=== PATIENT | male | born 1960 | race Two or more races ===

== ENCOUNTER 2025-04-04 16:14 | Inpatient (IN) | payer MEDICAID ==
[~2025-04-04] VITALS: Ht 154.9 cm; Wt 70.8 kg
[2025-04-04] MEDS: LEVETIRACETAM (500MG) 1,000 MG in IV NS 0.9% 90 ML IV SCH (17:19)
[2025-04-04 18:02] LABS: PLATELET COUNT (AUTO) 198 K/uL (150-450); RED BLOOD CELL COUNT(AUTO) 4.95 MIL/uL (4.5-6.0); RED CELL DISTRIBUTION WIDTH 13.3 % (11.5-15.0); WHITE BLOOD COUNT (AUTO) 7.2 K/uL (4.3-11.0)
[2025-04-04 18:04] LABS: CALCIUM, SERUM 9.2 mg/dL (8.5-10.1); CREATININE 0.7 mg/dL (0.6-1.3); SODIUM SERUM 140.0 mmol/L (136-145); UREA NITROGEN, BLOOD 17.0 mg/dL (7-18)
[2025-04-04 18:11] LABS: ASPARTATE AMINOTRANSFERASE 18.0 U/L (15-37); TOTAL PROTEIN, SERUM 7.0 g/dL (6.4-8.2)
[2025-04-04 18:16] LABS: LACTIC ACID 1.8 mmol/L (0.4-2.0)
[2025-04-04 18:18] LABS: INR 0.99 (0.91-1.10)
[2025-04-04] MEDS: IV NS 0.9% 1,000 ML BAG IV ONE (20:02)
[2025-04-04] MEDS ORDERED: DEXTROSE 50%-WATER 50 ML DISP.SYRIN IV PRN (22:00)
[2025-04-04] MEDS ORDERED: MAG HYDROX/AL HYDROX/SIMETH 30 ML UDC PO PRN (22:00)
[2025-04-04] MEDS ORDERED: LORAZEPAM INJ 2 MG/ML VIAL IV PRN (22:00)
[2025-04-04] MEDS ORDERED: MAGNESIUM HYDROXIDE 30 ML UDC PO PRN (22:00)
[2025-04-04] MEDS ORDERED: ONDANSETRON HCL/PF 4 MG/2 ML VIAL IVP PRN (22:00)
[2025-04-04] MEDS ORDERED: ACETAMINOPHEN 325 MG TABLET PO PRN (22:00)
[2025-04-04] MEDS: BLOOD SUGAR DIAGNOSTIC 1 EACH STRIP IN SCH (22:09)
[2025-04-04] MEDS ORDERED: INSULIN REGULAR, HUMAN 100 UNIT/ML 10 ML VIAL ONE (22:12)
[2025-04-04] MEDS: INSULIN REGULAR, HUMAN 100 UNIT/ML 3 ML VIAL SQ PRN (22:14)
[2025-04-04] MEDS: IV NS 0.9% 1,000 ML IV PRN (22:22)
[2025-04-04 22:55] VITALS: BP 118/74; TEMP 97.7; O2SAT 98
[2025-04-04] MEDS ORDERED: ACET325T53 PO (23:05)
[2025-04-04] MEDS ORDERED: HYDR-4076 PO (23:17)
[2025-04-04] MEDS ORDERED: LOSA50TA39 PO (23:17)
[2025-04-04] MEDS ORDERED: LACT20SO4 PO (23:17)
[2025-04-04] MEDS ORDERED: ONDA4TAB11 PO (23:17)
[2025-04-04] MEDS ORDERED: SENN-18 PO (23:17)
[2025-04-04] MEDS ORDERED: INSU100I4 SQ (23:17)
[2025-04-04] MEDS ORDERED: NA P133E RC (23:17)
[2025-04-04] MEDS ORDERED: NIFE-35 PO (23:17)
[2025-04-04] MEDS ORDERED: INSU100I30 SQ (23:17)
[2025-04-04] MEDS ORDERED: POLY17PO29 PO (23:17)
[2025-04-05 04:00] VITALS: BP 134/72; TEMP 97.3; O2SAT 96
[2025-04-05 07:08] LABS: APPEARANCE,URINE CLEAR (CLEAR); BLOOD, URINE NEGATIVE Ery/uL (NEGATIVE); LEUKOCYTE ESTERASE ,URINE NEGATIVE (NEGATIVE); NITRITE, URINE NEGATIVE (NEGATIVE); UGLUCOSE 3+ mg/dL (NEGATIVE)
[2025-04-05 07:12] LABS: ADD URINE CULTURE NO; SQUAMOUS EPITHELIAL CELL,UR 0-2 /HPF (None Seen)
[2025-04-05 07:21] LABS: PLATELET COUNT (AUTO) 171 K/uL (150-450); RED BLOOD CELL COUNT(AUTO) 4.85 MIL/uL (4.5-6.0); RED CELL DISTRIBUTION WIDTH 13.4 % (11.5-15.0); WHITE BLOOD COUNT (AUTO) 7.5 K/uL (4.3-11.0)
[2025-04-05 07:30] VITALS: BP 130/73; TEMP 98.6; O2SAT 100
[2025-04-05 07:43] LABS: CALCIUM, SERUM 9.0 mg/dL (8.5-10.1); CREATININE 0.7 mg/dL (0.6-1.3); PHOSPHORUS 3.3 mg/dL (2.5-4.9); SODIUM SERUM 141.0 mmol/L (136-145); UREA NITROGEN, BLOOD 15.0 mg/dL (7-18)
[2025-04-05] MEDS: PANTOPRAZOLE 40 MG TABLET.DR PO SCH (08:07)
[2025-04-05] MEDS: LEVETIRACETAM (500MG) 500 MG in IV NS 0.9% 100 ML IV SCH (08:07)
[2025-04-05] MEDS ORDERED: ATOR80TA PO (09:29)
[2025-04-05] MEDS ORDERED: INSU100C13 SQ (09:29)
[2025-04-05] MEDS ORDERED: DOCU100T2 PO (09:29)
[2025-04-05] MEDS ORDERED: MAGN400O21 PO (09:29)
[2025-04-05] MEDS ORDERED: CLON0.1T PO (09:29)
[2025-04-05] MEDS ORDERED: CRAN400C PO (09:29)
[2025-04-05] MEDS ORDERED: ACET-73 PO (09:29)
[2025-04-05] MEDS ORDERED: ACET325T53 PO (09:29)
[2025-04-05] MEDS ORDERED: GLUCAGON IM (09:29)
[2025-04-05] MEDS ORDERED: CHOL100062 PO (09:29)
[2025-04-05] MEDS ORDERED: ASPI-1169 PO (09:29)
[2025-04-05] MEDS ORDERED: BISA10SU61 RC (09:29)
[2025-04-05 16:00] VITALS: BP 141/76; TEMP 97.5; O2SAT 94
[2025-04-05] MEDS ORDERED: CLONIDINE HCL 0.1 MG TABLET PO PRN (18:00)
[2025-04-05] MEDS: SENNOSIDES 8.6 MG TABLET PO SCH (18:05)
[2025-04-05 20:00] VITALS: BP_SYST 155; BP_SYST 162; BP_DIAS 80; BP_DIAS 88; TEMP 98.4; O2SAT 97
[2025-04-05] MEDS: ATORVASTATIN 40 MG TABLET PO SCH (21:17)
[2025-04-05] MEDS: INSULIN GLARGINE, 100 UNIT/ML CARTRIDGE SQ SCH (21:43)
[2025-04-06] VITALS: BP 139/89; TEMP 98.1; O2SAT 97
[2025-04-06 04:00] VITALS: BP 125/80; TEMP 97.9; O2SAT 96
[2025-04-06 08:00] VITALS: BP 156/63; TEMP 97.3; O2SAT 97
[2025-04-06] MEDS: CHOLECALCIFEROL (VITAMIN D 3) 400 UNIT TABLET PO SCH (09:44)
[2025-04-06] MEDS: ASPIRIN 81 MG TAB.CHEW PO SCH (09:44)
[2025-04-06] MEDS: LOSARTAN POTASSIUM 50 MG TABLET PO SCH (09:44)
[2025-04-06] MEDS: NIFEdipine XL (30MG) 30 MG TAB PO SCH (09:45)
[2025-04-06] MEDS: DOCUSATE SODIUM 100 MG CAPSULE PO SCH (09:45)
[2025-04-06 12:00] VITALS: BP 154/78; TEMP 98.1; O2SAT 97
[2025-04-06 16:00] VITALS: BP 132/72; TEMP 98.1; O2SAT 97
[2025-04-06 20:00] VITALS: BP 146/77; TEMP 97.9; O2SAT 97
[2025-04-07] VITALS: BP 120/51; TEMP 97.3; O2SAT 98
[2025-04-07 04:00] VITALS: BP 114/76; TEMP 98.1; O2SAT 98
[2025-04-07 05:13] LABS: FOLIC ACID 4.5 ng/mL (>3.0)
[2025-04-07 08:00] VITALS: BP 144/82; TEMP 98.2; O2SAT 100
[2025-04-07] MEDS ORDERED: LEVE500T9 PO (08:46)
[2025-04-07 16:00] VITALS: BP 160/83; TEMP 98.2; O2SAT 98
[2025-04-07 17:22] VITALS: BP 160/78
[2025-04-11 06:10] LABS: VITAMIN B1 THIAMINE,WB 108.0 nmol/L (66.5-200.0)
== END 2025-04-07 19:50 | DRG 58 ==
LOC: ER 16:52 → MED 19:28 → TELE 23:45 → MED 04-07 09:46
PROVIDERS: ATTEND Nurse Practitioner Acute Care
DX: G25.3 Myoclonus (principal); R13.10 Dysphagia, unspecified; I69.351 Hemiplegia and hemiparesis following cerebral infarction affecting right dominant side; E11.9 Type 2 diabetes mellitus without complications; I10 Essential (primary) hypertension; E78.5 Hyperlipidemia, unspecified; Z79.4 Long term (current) use of insulin
CPT/HCPCS: 36415; 70450-TC; 71045-TC; 80048-TC; 80076-TC; 81001; 82140-TC; 82607-TC; 82962-TC; 83605-TC; 83735-TC; 83921; 84100-TC; 84425; 84443-TC; 85025-TC; 85730-TC; 87040-TC; 87081-TC; 87086-TC; 95819-TC; 97110-TC; 97116-TC; 97530-TC; 97535-TC; G0378; J1200; J1815; J1953; J7030

== ENCOUNTER 2025-05-21 09:57 | Emergency (ER) | payer MEDICAID ==
[~2025-05-21] VITALS: Ht 154.9 cm; Wt 70.8 kg
[~2025-05-21 09:57] MED LIST: ACET-73 PO; ACET325T53 PO; ASPI-1169 PO; ATOR80TA PO; BISA10SU61 RC; CHOL100062 PO; CLON0.1T PO; CRAN400C PO; DOCU100T2 PO; GLUCAGON IM; HYDR-4076 PO; INSU100C13 SQ; INSU100I30 SQ; INSU100I4 SQ; LACT20SO4 PO; LEVE500T9 PO; LOSA50TA39 PO; MAGN400O21 PO; NA P133E RC; NIFE-35 PO; ONDA4TAB11 PO; POLY17PO29 PO; SENN-18 PO
[2025-05-21] MEDS ORDERED: HYDROCHLOROTHIAZIDE 25 MG TABLET ONE (11:43)
[2025-05-21 12:25] VITALS: BP 171/74; TEMP 98.1; O2SAT 97
== END 2025-05-21 12:32 ==
LOC: ER 09:59
DX: S00.81XA Abrasion of other part of head, initial encounter (principal); I10 Essential (primary) hypertension; E11.9 Type 2 diabetes mellitus without complications; G40.909 Epilepsy, unspecified, not intractable, without status epilepticus; Z79.4 Long term (current) use of insulin; Z79.82 Long term (current) use of aspirin; Z79.899 Other long term (current) drug therapy; W01.0XXA Fall on same level from slipping, tripping and stumbling without subsequent striking against object, initial encounter; Y93.89 Activity, other specified; Y92.89 Other specified places as the place of occurrence of the external cause; Y99.8 Other external cause status
CPT/HCPCS: 70450-TC